=== PATIENT | female | born 1975 | race Caucasian/White ===

== ENCOUNTER 2021-05-08 03:09 | Emergency (ER) | payer OTHER ==
[2021-05-08 03:25] VITALS: BP 122/82; PULSE 87; TEMP 97.6; BMI 45.4
[2021-05-08] MEDS ORDERED: ACETAMINOPHEN 325 MG TABLET (FP) PO ONE (04:50)
[2021-05-08] MEDS ORDERED: ACETAMINOPHEN 325 MG TABLET (FP) ONE (04:58)
== END 2021-05-08 05:17 | disposition home or self-care (01) ==
LOC: JER 03:09
DX: K08.89 Other specified disorders of teeth and supporting structures (principal)
CPT/HCPCS: 99283-25